=== PATIENT | male | born 1985 ===

== ENCOUNTER 2018-05-16 15:47 | Emergency (ER) | payer SELFPAY ==
[2018-05-16 16:01] VITALS: BP 139/88; RESP 16; TEMP 98.1; O2SAT 100
--- NOTE | 2018-05-16 16:17 | ED PDOC ---
Lower Extremity Pain/Injury Time Seen by Provider: 05/16/18 16:10 Chief Complaint (Nursing): Lower Extremity Problem/Injury Chief Complaint (Provider): bilateral ankle pain History Per: Patient History/Exam Limitations: no limitations Onset/Duration Of Symptoms: Days (x3) Current Symptoms Are (Timing): Still Present Additional Complaint(s): Joaquín Carrasco is a 32 year old male, with a past medical history of right ankle fracture, who presents to the emergency department complaining of bilateral ankle pain and swelling onset x3 days ago. Patient states he was seen by a doctor and was given an injection for pain in left foot at MTP joint with improvement. He is pending bloodwork, testing for abnormal antibodies and uric acid levels for evaluation of cause of pain. Patient did not take any medication for pain today. He works doing construction. He denies any falls, injuries or other medical complaints. PMD: Clinic Past Medical History Reviewed: Historical Data, Nursing Documentation, Vital Signs Vital Signs: Last Vital Signs Temp 98.1 F 05/16/18 15:51 Pulse 128 H 05/16/18 15:51 Resp 16 05/16/18 15:51 BP 139/88 05/16/18 15:51 Pulse Ox 100 05/16/18 15:51 - Medical History PMH: No Chronic Diseases - Surgical History Surgical History: No Surg Hx - Family History Family History: States: Unknown Family Hx - Home Medications Home Medications: Ambulatory Orders Medication Instructions Recorded Naproxen 375 mg PO Q8 PRN #21 tablet 05/16/18 - Allergies Allergies/Adverse Reactions: Allergies Allergy/AdvReac Type Severity Reaction Status Date / Time No Known Allergies Allergy Verified 05/16/18 15:52 Review of Systems ROS Statement: Except As Marked, All Systems Reviewed And Found Negative Musculoskeletal: Positive for: Foot Pain (bilateral ankle pain) Physical Exam - Reviewed Nursing Documentation Reviewed: Yes Vital Signs Reviewed: Yes - Physical Exam Appears: Positive for: No Acute Distress Head Exam: Positive for: ATRAUMATIC, NORMAL INSPECTION, NORMOCEPHALIC Skin: Positive for: Normal Color, Warm, Dry Eye Exam: Positive for: Normal appearance, EOMI, PERRL Neck: Positive for: Normal, Painless ROM Extremity: Positive for: Normal ROM (lower extremities), Swelling (Mild swelling to bilateral medial aspect of ankles and foot. No obvious erythema. Negative Homans sign). Negative for: Deformity Neurological/Psych: Positive for: Awake, Alert, Normal Tone - ECG O2 Sat by Pulse Oximetry: 100 (RA) Pulse Ox Interpretation: Normal - Progress ED Course And Treament: Stool 3 standard views of the right and left ankles performed. FINDINGS: No evidence of acute displaced fracture nor dislocation. There is a well corticated bony density seen within the soft tissues adjacent to the inferior tip of the right lateral malleolus. This may represent some old posttraumatic mineralization. The questionable subchondral cystic focus anterior distal right tibia at the tibiotalar articulation. Small corticated bony density within soft tissues subjacent to the inferior tip of the medial malleolus left ankle. Minimal spur formation anterior distal tibia at the tibiotalar articulation. The There is also small bilateral plantar posterior surface calcaneal enthesophytes. IMPRESSION: No evidence of acute displaced fracture of the dislocation. Probable posttraumatic mineralization changes both ankles as detailed above.. Minor degenerative osteoarthritis bilaterally with rht questionable tiny anterior subchondral cyst distal right tibia at the level of the tibiotalar articulation and minor spurring anterior distal left tibia at the tibiotalar articulation.. Medical Decision Making Medical Decision Making: Time: 16:10 Initial Impression: Bilateral ankle Initial vishnu: --Ankle complete 3 views BI [RAD] --Foot 3 views BI [RAD] --Reevaluation Scribe Attestation: Documented by Jcarlos Kelsey, acting as a scribe for Shanique Bui PA-C. Provider Scribe Attestation: All medical record entries made by the Scribe were at my direction and personally dictated by me. I have reviewed the chart and agree that the record accurately reflects my personal performance of the history, physical exam, medical decision making, and the department course for this patient. I have also personally directed, reviewed, and agree with the discharge instructions and disposition. Disposition - Clinical Impression Clinical Impression: Foot pain, bilateral, Arthritis - Patient ED Disposition Is Patient to be Admitted: No - Disposition Referrals: Podiatry Clinic [Outside] Disposition: Routine/Home Disposition Time: 17:31 Condition: FAIR Prescriptions: Naproxen 375 mg PO Q8 PRN #21 tablet PRN Reason: Pain, Moderate (4-7) Instructions: Osteoarthritis, Metatarsalgia (DC) Print Language: ROMANSH
--- NOTE | 2018-05-16 17:18 | RAD ---
Date of service: 05/16/2018 PROCEDURE: Bilateral ankles HISTORY: Ankle pain; h/o fx left ankle COMPARISON: Comparison made with concurrent radiographs of both feet TECHNIQUE: Stool 3 standard views of the right and left ankles performed. FINDINGS: No evidence of acute displaced fracture nor dislocation. There is a well corticated bony density seen within the soft tissues adjacent to the inferior tip of the right lateral malleolus. This may represent some old posttraumatic mineralization. The questionable subchondral cystic focus anterior distal right tibia at the tibiotalar articulation. Small corticated bony density within soft tissues subjacent to the inferior tip of the medial malleolus left ankle. Minimal spur formation anterior distal tibia at the tibiotalar articulation. The There is also small bilateral plantar posterior surface calcaneal enthesophytes. IMPRESSION: No evidence of acute displaced fracture of the dislocation. Probable posttraumatic mineralization changes both ankles as detailed above.. Minor degenerative osteoarthritis bilaterally with rht questionable tiny anterior subchondral cyst distal right tibia at the level of the tibiotalar articulation and minor spurring anterior distal left tibia at the tibiotalar articulation..
[2018-05-16 17:58] VITALS: PULSE 95
--- NOTE | 2018-05-17 11:58 | RAD ---
Date of service: 05/16/2018 PROCEDURE: Bilateral Feet Radiographs. HISTORY: Foot pain COMPARISON: Correlation made with concurrent radiographs both ankles TECHNIQUE: 6 views obtained. FINDINGS: BONES: Right Foot: No evidence of acute displaced fracture nor dislocation tiny bony density seen within the soft tissues dorsal to the posterior malleolus which may represent some old posttraumatic mineralization. Tiny posterior surface calcaneal enthesophyte Left Foot: No evidence of acute displaced fracture nor dislocation. Tiny posterior surface calcaneal enthesophyte JOINTS: Small anterior distal tibial osteophytes are present bilaterally. SOFT TISSUES: Right Foot: Normal. Left Foot: Normal. OTHER FINDINGS: None. No evidence of acute displaced fracture nor dislocation. IMPRESSION:
== END 2018-05-16 17:57 | disposition home or self-care (01) ==
LOC: H.ER 15:47
DX: M19.072 Primary osteoarthritis, left ankle and foot (principal); M19.071 Primary osteoarthritis, right ankle and foot
CPT/HCPCS: 73610; 73630; 96372; 99283; J1885